=== PATIENT | female | born 1985 | race Caucasian/White ===

== ENCOUNTER 2020-05-01 17:33 | Outpatient (CLI) | payer OTHER, SELFPAY ==
--- NOTE | 2020-05-01 17:45 | DI.RAD_ITS ---
EXAM: XR HAND LT COMPLETE CLINICAL HISTORY: left hand pain and swelling. TECHNIQUE: 2D digital imaging was performed. COMPARISON: No exams were available for comparison FINDINGS: BONES: No acute fracture is present. No bony destructive lesion is seen. JOINTS: No dislocation present. SOFT TISSUE: There is mild generalized soft tissue swelling. No radiopaque foreign bodies are seen i n the soft tissues. IMPRESSION: Generalized soft tissue swelling of the hand. DATA REPOSITORY: RADIATION DOSE DELIVERED:
--- NOTE | 2020-05-01 18:10 | DI.VRAD_ITS ---
PROCEDURE INFORMATION: Exam: XR Left Hand Exam date and time: 05/01/2020 5:53 PM Age: 34 years old Clinical indication: Patient HX: Left hand pain and swelling TECHNIQUE: Imaging protocol: XR Left hand. Views: 3 or more views. COMPARISON: No relevant prior studies available. FINDINGS: Bones/joints: Normal. Soft tissues: Soft tissue swelling IMPRESSION: Soft tissue swelling about the left hand. Bones appear normal. Dictated and Authenticated by: Keisha Nunes MD. Ordering:FERNANDO Del Cid MD
== END 2020-05-01 17:53 ==
PROVIDERS: PCP Nurse Practitioner Family; Visit Provider Nurse Practitioner Family
DX: M79.642 Pain in left hand (principal); M79.89 Other specified soft tissue disorders
CPT/HCPCS: 73130

== ENCOUNTER 2020-10-03 14:25 | Outpatient (REF) | payer OTHER, SELFPAY ==
[2020-10-04 23:55] LABS: COVID-19 RT-PCR UVMMC Result Negative (Negative)
== END 2020-10-03 14:26 | disposition home or self-care (01) ==
LOC: LBN 14:25
PROVIDERS: Visit Provider Nurse Practitioner Family
DX: Z20.822 Contact with and (suspected) exposure to COVID-19 (principal); J02.9 Acute pharyngitis, unspecified
CPT/HCPCS: U0003

== ENCOUNTER 2021-07-23 13:21 | Outpatient (REF) | payer OTHER, SELFPAY ==
--- NOTE | 2021-07-23 10:30 | PAPFT_PTH ---
PATIENT: Indigo Pedraza LOC: [facility] U#:[id number] AGE/SX: 36/F ROOM: RE07/23/[address]: Amy Salamanca, PhD [employer] W[employer]ER : 1985 BED: DIS: 07/23/2021 SPEC #: [id number] RECD: 07/27/21 12:40 STATUS: JOSH RERogelio #: [id number] ADRIA: 07/23/21 10:[address]: Amy Salamanca DEPT: [facility] Cytology RECD BY: Sheila Hawthorne Tissues: 1 - CX/ENDOCX FOR PAP SMEARS Procedures: PAP THIN PREP/UVM Screening HPV DNA PROBE Comments: [id number]
== END 2021-07-23 13:22 | disposition home or self-care (01) ==
LOC: LBN 13:21
PROVIDERS: PCP Nurse Practitioner; Visit Provider Nurse Practitioner
DX: Z12.4 Encounter for screening for malignant neoplasm of cervix (principal); Z11.51 Encounter for screening for human papillomavirus (HPV)
CPT/HCPCS: 88142; 87624

== ENCOUNTER 2021-07-29 03:08 | Outpatient (CLI) | payer OTHER, SELFPAY ==
[2021-07-29 12:25] LABS: HCT 36.1 % (36.0-46.0); HGB 11.4 g/dL (11.2-15.7); MCH 24.5 pg (27.0-33.0); MCHC 31.6 % (32.0-36.0); MCV 78 fL (80-95); MPV 9.6 fL (8.0-11.0); Platelet Count 404 10^3/uL (130-400); RBC 4.65 10^6/uL (3.93-5.22); RDW 15.6 % (11.7-14.6); RDW-SD 43.8 fL; WBC 7.26 10^3/uL (4.4-10.8)
[2021-07-29 12:47] LABS: Hemoglobin A1C 5.7 % (<5.7)
[2021-07-29 12:53] LABS: Calculated LDL 155 mg/dL (<100); Cholesterol 232 mg/dL (<200); HDL Cholesterol 60 mg/dL (40-60); Triglyceride 88 mg/dL (<150)
== END 2021-07-29 03:09 | disposition home or self-care (01) ==
LOC: LOS 03:08
PROVIDERS: PCP Nurse Practitioner; Visit Provider Nurse Practitioner
DX: N92.0 Excessive and frequent menstruation with regular cycle (principal); Z13.1 Encounter for screening for diabetes mellitus; Z13.6 Encounter for screening for cardiovascular disorders
CPT/HCPCS: 36415; 80061; 85027; 83036

== ENCOUNTER → 2021-09-10 00:46 | Outpatient (CLI) | payer OTHER, SELFPAY ==
--- NOTE | 2021-09-10 | DI.US_ITS ---
Exam(s) MG MAMMO DIAGNOSTIC UNI US BREAST LT LIMITED EXAM: MAMMO DIAGNOSTIC UNI and U/S breast LT limited CLINICAL HISTORY: LT BREAST PAIN, N64.4. TECHNIQUE: Craniocaudal and mediolateral oblique Full Field Digital Mammography views of the left br east with Computer Aided Diagnosis followed by Tomosynthesis and left breast ultrasound. COMPARISON: This is a baseline examination. FINDINGS: Mammography/Tomosynthesis: Masses/Architectural Distortion: None seen. There is a small well-circumscribed nodule in the axillar y tail region of the left breast likely reflecting a lymph node. Microcalcifictions: No suspicious pleomorphic-type are seen. Skin Thickening/Nipple Retraction: None. Limited left breast US: Echotexture: Normal appearance of the glandular tissue. Shadowing: No suspicious foci. Cyst: None. Solid lesions: None seen. Ductal dilation: None. IMPRESSION: 1. No evidence of malignancy is noted. 2. Unless there is more urgent need, follow-up screening mammography is recommended, as per [place] [employer] guidelines. 3. The findings were discussed with the patient on the date of the examination. BI-RADS Category 1 - Negative Breast Density - Category C - Heterogeneously dense Breast density Category C or D implies that the patient has dense breast tissue. Dense breast tissue can make it harder to find cancer on a mammogram. Dense breast tissue is also associated with an incr eased risk of breast cancer. This information about the result of the mammogram report was provided to the patient to raise their awareness. Use this report when you speak with the patient about their risks for breast cancer, which includes their family history. At that time, you may recommend additional screening tests (Ultrasoun d or MRI) as these tests may add significant information. A negative radiographic report should not delay biopsy if a dominant or clinically suspicious mass is present. Up to ten percent of cancers are not identified on mammography. A negative report may reinforce clinical impression. Adenosis and dense breasts may obscure an underlying neoplasm. False positive reports average 6 to 10%. Patient will receive a letter notifying them of these results.
== END ==
PROVIDERS: PCP Nurse Practitioner; Visit Provider Nurse Practitioner
DX: N64.4 Mastodynia (principal); R92.2 Inconclusive mammogram
CPT/HCPCS: 76642; 77061; 77065; G0279

== ENCOUNTER 2022-10-14 02:30 | Outpatient (CLI) | payer OTHER, SELFPAY ==
[2022-10-14 10:45] LABS: HCT 36.4 % (36.0-46.0); HGB 11.2 g/dL (11.2-15.7); MCHC 30.8 % (32.0-36.0); MCV 78 fL (80-95); MPV 9.5 fL (8.0-11.0); Platelet Count 469 10^3/uL (130-400); RBC 4.67 10^6/uL (3.93-5.22); RDW 14.9 % (11.7-14.6); RDW-SD 41.8 fL; WBC 7.71 10^3/uL (4.4-10.8)
[2022-10-14 11:05] LABS: Anion Gap 6.3 mmol/L (3-11); BUN 9 mg/dL (7-18); CO2 30.7 mmol/L (21.0-32.0); CREATININE 0.8 mg/dL (0.55-1.02); Calcium 9.4 mg/dL (8.5-10.1); Calculated LDL 149 mg/dL (<100); Chloride 105 mmol/L (98-107); Cholesterol 228 mg/dL (<200); Estimated GFR 97.87 (mL/min/1.73m2); Glucose 87 mg/dL (74-106); HDL Cholesterol 57 mg/dL (40-60); Potassium 4.2 mmol/L (3.5-5.1); Sodium 142 mmol/L (136-145); TSH (W/Ref FT4) 2.07 uIU/mL (0.36-3.74); Triglyceride 114 mg/dL (<150)
== END 2022-10-14 02:31 | disposition home or self-care (01) ==
LOC: LOS 02:30
PROVIDERS: PCP Nurse Practitioner Family; Visit Provider Nurse Practitioner Family
DX: Z00.00 Encounter for general adult medical examination without abnormal findings (principal); K21.9 Gastro-esophageal reflux disease without esophagitis; F41.9 Anxiety disorder, unspecified; N92.0 Excessive and frequent menstruation with regular cycle; E78.5 Hyperlipidemia, unspecified
CPT/HCPCS: 36415; 80048; 80061; 85027; 84443

== ENCOUNTER 2023-10-23 02:22 | Outpatient (CLI) | payer OTHER, SELFPAY ==
--- NOTE | 2023-10-23 07:45 | DI.MAMMO_ITS ---
Exam(s) MAMMO SCREENING EXAM: MAMMO SCREENING CLINICAL HISTORY: screening,z12.39. TECHNIQUE: Bilateral full field digital CC and MLO mammographic images were obtained with 3D tomosyn thesis and utilizing computer aided detection (CAD). COMPARISON: Prior diagnostic mammogram of 09/10/2021 was reviewed FINDINGS: Fibroglandular tissue pattern is again noted be moderately dense. No significant radiograph findings in the right breast. The left breast on the MLO view there is an asymmetric density-possible nodule measuring 9 x 8 millim eters located 2.5 cm in from the nipple on the MLO view. Spot compression view and ultrasound recomm ended. There are no malignant-appearing microcalcification groups in this region or elsewhere in either [address]. There is no significant architectural distortion nor skin thickening-retraction. IMPRESSION: 1. No radiographic evidence of within the right breast. 2. Asymmetric density-possible left breast nodule. Spot compression MLO view and ultrasound recommen ded. BI-RADS Category 0 - Incomplete: Need additional imaging evaluation Breast Density - Category C - Heterogeneously dense Breast density Category C or D implies that the patient has dense breast tissue. Dense breast tissue can make it harder to find cancer on a mammogram. Dense breast tissue is also associated with an incr eased risk of breast cancer. This information about the result of the mammogram report was provided to the patient to raise their awareness. Use this report when you speak with the patient about their risks for breast cancer, which includes their family history. At that time, you may recommend additional screening tests (Ultrasoun d or MRI) as these tests may add significant information. A negative radiographic report should not delay biopsy if a dominant or clinically suspicious mass is present. Up to ten percent of cancers are not identified on mammography. A negative report may reinforce clinical impression. Adenosis and dense breasts may obscure an underlying neoplasm. False positive reports average 6 to 10%. Patient will receive a letter notifying them of these results.
== END 2023-10-23 02:42 ==
LOC: DI 02:23
PROVIDERS: PCP Nurse Practitioner Family; Visit Provider Nurse Practitioner Family
DX: Z12.31 Encounter for screening mammogram for malignant neoplasm of breast (principal)
CPT/HCPCS: 77063; 77067

== ENCOUNTER 2023-10-23 03:10 | Outpatient (CLI) | payer OTHER, SELFPAY ==
[2023-10-23 11:59] LABS: Anion Gap 10.7 mmol/L (3-11); BUN 8 mg/dL (7-18); CO2 26.3 mmol/L (21.0-32.0); CREATININE 0.8 mg/dL (0.55-1.02); Calcium 9.4 mg/dL (8.5-10.1); Calculated LDL 139 mg/dL (<100); Chloride 101 mmol/L (98-107); Cholesterol 222 mg/dL (<200); Estimated GFR 97.26 (mL/min/1.73m2); Glucose 97 mg/dL (74-106); HDL Cholesterol 53 mg/dL (40-60); Potassium 3.7 mmol/L (3.5-5.1); Sodium 138 mmol/L (136-145); Triglyceride 154 mg/dL (<150)
[2023-10-23 12:09] LABS: Hemoglobin A1C 5.7 % (<5.7)
== END 2023-10-23 03:11 | disposition home or self-care (01) ==
LOC: LOS 03:11
PROVIDERS: PCP Nurse Practitioner Family; Visit Provider Nurse Practitioner Family
DX: Z00.00 Encounter for general adult medical examination without abnormal findings (principal); F41.9 Anxiety disorder, unspecified; K21.9 Gastro-esophageal reflux disease without esophagitis; N92.0 Excessive and frequent menstruation with regular cycle
CPT/HCPCS: 36415; 80048; 80061; 83036

== ENCOUNTER 2023-10-31 01:29 | Outpatient (CLI) | payer OTHER, SELFPAY ==
--- NOTE | 2023-10-31 | DI.US_ITS ---
Exam(s) MG MAMMO SCREEN CALL BACK UNI US BREAST LT LIMITED EXAM: MG MAMMO SCREEN CALL BACK UNI and U/S breast LT limited CLINICAL HISTORY: F/U MAMMO, LT ASYMMETRIC DENSITY, ? NODULE. TECHNIQUE: Craniocaudal and mediolateral oblique Full Field Digital Mammography views of the left br east with Computer Aided Diagnosis followed by Tomosynthesis and left breast ultrasound. COMPARISON: Comparison is made with prior examinations. FINDINGS: Mammography/Tomosynthesis: Masses/Architectural Distortion: The area of concern does not persist on the additional views. No ma ss is seen. No evidence of architectural distortion is present. Microcalcifictions: No suspicious pleomorphic-type are seen. Skin Thickening/Nipple Retraction: None. Limited left breast US: Echotexture: Normal appearance of the glandular tissue. Shadowing: No suspicious foci. Cyst: None. Solid lesions: The sonographically benign-appearing lymph node is seen at the 9 o'clock position of t he left breast. No suspicious solid masses are seen. Ductal dilation: None. IMPRESSION: 1. No evidence of malignancy is noted. 2. Unless there is more urgent need, follow-up screening mammography is recommended, as per [place] [employer] guidelines. 3. The findings were discussed with the patient on the date of the examination. BI-RADS Category 1 - Negative Breast Density - Category C - Heterogeneously dense Breast density Category C or D implies that the patient has dense breast tissue. Dense breast tissue can make it harder to find cancer on a mammogram. Dense breast tissue is also associated with an incr eased risk of breast cancer. This information about the result of the mammogram report was provided to the patient to raise their awareness. Use this report when you speak with the patient about their risks for breast cancer, which includes their family history. At that time, you may recommend additional screening tests (Ultrasoun d or MRI) as these tests may add significant information. A negative radiographic report should not delay biopsy if a dominant or clinically suspicious mass is present. Up to ten percent of cancers are not identified on mammography. A negative report may reinforce clinical impression. Adenosis and dense breasts may obscure an underlying neoplasm. False positive reports average 6 to 10%. Patient will receive a letter notifying them of these results.
== END 2023-10-31 01:49 ==
PROVIDERS: PCP Nurse Practitioner Family; Visit Provider Nurse Practitioner Family
DX: Z12.31 Encounter for screening mammogram for malignant neoplasm of breast (principal); R92.8 Other abnormal and inconclusive findings on diagnostic imaging of breast
CPT/HCPCS: 76642; 77063; 77067